=== PATIENT | male | born 1965 | race Caucasian/White ===

== ENCOUNTER 2017-01-25 20:57 | Emergency (ER) | payer SELFPAY ==
[~2017-01-25] VITALS: Ht 182.9 cm; Wt 87.0 kg
[~2017-01-25 20:57] MED LIST: IBUP800T23 PO; METH750T2 PO
[2017-01-25 20:58] VITALS: BP 118/57; PULSE 75; RESP 16; TEMP 98.8; O2SAT 96
--- NOTE | 2017-01-25 22:29 | PD ---
Physical Exam Time Seen by Provider: 22:28 Narrative 51yo M c/o nasal laceration from a yonatan frawn today after it fell on his face. Not up to date on tetanus. Patient seen in triage. VS reviewed. Awaiting bed placement. Data Data Last Documented VS Vital Signs Date Time Temp Pulse Resp B/P (MAP) Pulse Ox O2 Delivery O2 Flow Rate FiO2 01/25/17 20:58 98.8 75 16 118/57 (77) 96 Room Air MDM Supervised Visit with ARTEMIO: Karla Lorenz Jan 25, 2017 22:29
== END 2017-01-25 23:26 | disposition left against medical advice (07) ==
LOC: NED 20:57
DX: S01.21XA Laceration without foreign body of nose, initial encounter (principal); W22.8XXA Striking against or struck by other objects, initial encounter; Z53.21 Procedure and treatment not carried out due to patient leaving prior to being seen by health care provider
CPT/HCPCS: 99281

== ENCOUNTER 2017-04-12 09:32 | Observation (INO) | payer SELFPAY ==
[~2017-04-12] VITALS: Ht 182.9 cm; Wt 90.0 kg
[2017-04-12 09:34] VITALS: BP 128/78; PULSE 68; RESP 16; TEMP 98; O2SAT 97
[2017-04-12 09:56] VITALS: BP 144/60; PULSE 67; RESP 16; TEMP 98.6; O2SAT 100
[2017-04-12 09:58] VITALS: O2SAT 96
[2017-04-12] MEDS ORDERED: SODIUM CHLORIDE 0.9% FLUSH 10 ML FLUSH IVF PRN (10:00)
[2017-04-12 10:23] LABS: AUTOMATED NEUTROPHIL # 4.5 TH/MM3 (1.8-7.7); BASOPHIL # 0.1 TH/MM3 (0-0.2); BASOPHIL % 1.2 % (0.0-2.0); EOSINOPHIL # 0.3 TH/MM3 (0-0.4); EOSINOPHIL % 3.6 % (0.0-4.0); HEMATOCRIT 40.5 % (39.0-51.0); HEMO FLAGS DIFF FINAL; LYMPH % 23.3 % (9.0-44.0); LYMPHOCYTE # 1.7 TH/MM3 (1.0-4.8); MEAN CELL VOLUME 87.6 FL (80.0-100.0); MEAN CORPUSCULAR HGB CONC 35.4 % (32.0-36.0); MONO % 9.3 % (0.0-8.0); NEUT % 62.6 % (16.0-70.0); PLATELET COUNT 216 TH/MM3 (150-450); RED BLOOD COUNT 4.63 MIL/MM3 (4.50-5.90); RED CELL DISTRIBUTION WIDTH 12.9 % (11.6-17.2); WHITE BLOOD COUNT 7.2 TH/MM3 (4.0-11.0)
[2017-04-12 10:35] LABS: APTT (PATIENT) 27.3 SEC (24.3-30.1); PROTHROMBIN TIME - PATIENT 10.5 SEC (9.8-11.6)
[2017-04-12] MEDS ORDERED: NITROGLYCERIN 0.4 MG SL 25 TABS/BTL SL ONE (10:45)
[2017-04-12] MEDS ORDERED: ASPIRIN 81 MG CHEW TAB CHEW ONE (10:45)
[2017-04-12 10:46] LABS: ALT (GPT) 31 U/L (12-78)
--- NOTE | 2017-04-12 10:47 | PD ---
HPI Chief Complaint: Pain: Acute or Chronic Time Seen by Provider: 09:48 Travel History International Travel<30 days: No Contact w/Intl Traveler<30days: No Traveled to known affect area: No History of Present Illness HPI Patient is a 51-year-old male presents emergency Department with left-sided chest pain without radiation. Patient states his been on and off for some time but had an episode this morning which is concerning to him. Describes it as a small pressure, so she was mild shortness of breath no nausea no vomiting no diarrhea no constipation. He relates a history of his sister at a similar age having a "massive heart attack". Patient states he's ex-smoker, has not had a checkup in many years, is unsure if he has high blood pressure high cholesterol. States currently the symptoms are mild.. PFSH Past Medical History Arthritis: No Asthma: No Anxiety: Yes Depression: Yes Heart Rhythm Problems: No Cardiovascular Problems: No High Cholesterol: No Chemotherapy: No Chest Pain: No COPD: Yes Cerebrovascular Accident: No Diabetes: No Diminished Hearing: No Endocrine: No GERD: No Genitourinary: No Headaches: Yes Hepatitis: Yes (HEPATITIS C) Hiatal Hernia: No Immune Disorder: No Musculoskeletal: No Neurologic: No Psychiatric: Yes Reproductive: No Respiratory: No Migraines: No Pneumonia: Yes (X 1 ) Radiation Therapy: No Renal Failure: No Seizures: No Sickle Cell Disease: No Sleep Apnea: No Thyroid Disease: No Ulcer: No Past Surgical History Abdominal Surgery: Yes AICD: No Appendectomy: Yes Arteriovenous Shunt: No Cardiac Surgery: No Ear Surgery: No Endocrine Surgery: No Eye Surgery: No Genitourinary Surgery: No Gynecologic Surgery: No Insulin Pump: No Joint Replacement: No Oral Surgery: No Pacemaker: No Thoracic Surgery: No Social History 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 SKIN: Focused skin assessment warm/dry. HEAD: Atraumatic. Normocephalic. EYES: Pupils equal and round. No scleral icterus. No injection or drainage. ENT: No nasal bleeding or discharge. Mucous membranes pink and moist. NECK: Trachea midline. No JVD. CARDIOVASCULAR: Regular rate and rhythm. No murmur appreciated. RESPIRATORY: No accessory muscle use. Clear to auscultation. Breath sounds equal bilaterally. GASTROINTESTINAL: Abdomen soft, non-tender, nondistended. Hepatic and splenic margins not palpable. MUSCULOSKELETAL: No obvious deformities. No clubbing. No cyanosis. No edema. NEUROLOGICAL: Awake and alert. No obvious cranial nerve deficits. Motor grossly within normal limits. Normal speech. PSYCHIATRIC: Appropriate mood and affect; insight and judgment normal. Data Data Last Documented VS Vital Signs Date Time Temp Pulse Resp B/P (MAP) Pulse Ox O2 Delivery O2 Flow Rate FiO2 04/12/17 11:22 63 18 117/69 (85) 100 Room Air 04/12/17 09:56 98.6 Orders Orders Electrocardiogram (04/12/17 09:46) Ckmb (Isoenzyme) Profile (04/12/17 09:46) Complete Blood Count With Diff (04/12/17 09:46) Comprehensive Metabolic Panel (04/12/17 09:46) Magnesium (Mg) (04/12/17 09:46) Prothrombin Time / Inr (Pt) (04/12/17 09:46) Act Partial Throm Time (Ptt) (04/12/17 09:46) Troponin I (04/12/17 09:46) Lipase (04/12/17 09:46) Ecg Monitoring (04/12/17 09:46) Iv Access Insert/Monitor (04/12/17 09:46) Oximetry (04/12/17 09:46) Oxygen Administration (04/12/17 09:46) Sodium Chloride 0.9% Flush (Ns Flush) (04/12/17 10:00) Aspirin Chew (Aspirin Chew) (04/12/17 10:45) Nitroglycerin Sl (Nitrostat Sl) (04/12/17 10:45) Chest, Single Ap (04/12/17 ) Sodium Chlor 0.9% 1000 Ml Inj (Ns 1000 M (04/12/17 11:45) Ct Abd/Pel W Iv Contrast(Rout) (04/12/17 ) Iohexol 350 Inj (Omnipaque 350 Inj) (04/12/17 12:25) Admit Order (Ed Use Only) (04/12/17 ) Labs Laboratory Tests Test 04/12/17 09:45 White Blood Count 7.2 TH/MM3 Red Blood Count 4.63 MIL/MM3 Hemoglobin 14.3 GM/DL Hematocrit 40.5 % Mean Corpuscular Volume 87.6 FL Mean Corpuscular Hemoglobin 31.0 PG Mean Corpuscular Hemoglobin Concent 35.4 % Red Cell Distribution Width 12.9 % Platelet Count 216 TH/MM3 Mean Platelet Volume 9.5 FL Neutrophils (%) (Auto) 62.6 % Lymphocytes (%) (Auto) 23.3 % Monocytes (%) (Auto) 9.3 % Eosinophils (%) (Auto) 3.6 % Basophils (%) (Auto) 1.2 % Neutrophils # (Auto) 4.5 TH/MM3 Lymphocytes # (Auto) 1.7 TH/MM3 Monocytes # (Auto) 0.7 TH/MM3 Eosinophils # (Auto) 0.3 TH/MM3 Basophils # (Auto) 0.1 TH/MM3 CBC Comment DIFF FINAL Differential Comment Prothrombin Time 10.5 SEC Prothromb Time International Ratio 1.0 RATIO Activated Partial Thromboplast Time 27.3 SEC Blood Urea Nitrogen 14 MG/DL Creatinine 0.84 MG/DL Random Glucose 89 MG/DL Total Protein 7.4 GM/DL Albumin 4.0 GM/DL Calcium Level 8.8 MG/DL Magnesium Level 2.1 MG/DL Alkaline Phosphatase 81 U/L Aspartate Amino Transf (AST/SGOT) 22 U/L Alanine Aminotransferase (ALT/SGPT) 31 U/L Total Bilirubin 0.3 MG/DL Sodium Level 139 MEQ/L Potassium Level 3.9 MEQ/L Chloride Level 104 MEQ/L Carbon Dioxide Level 27.0 MEQ/L Anion Gap 8 MEQ/L Estimat Glomerular Filtration Rate 96 ML/MIN Total Creatine Kinase 91 U/L Troponin I LESS THAN 0.02 NG/ML Lipase 519 U/L MDM Medical Decision Making Medical Screen Exam Complete: Yes Emergency Medical Condition: Yes Differential Diagnosis ACS, AMI, pancreatitis, chest wall pain, GERD. Narrative Course 51-year-old male presents emergency department for evaluation of chest pain left side of his chest without radiation. Significant family history of heart attack in his sister who had a massive heart attack according to him. Initial EKG troponin negative. Patient had an isolated in lead elevation of lipase. He has not had any nausea or vomiting. This pain is fairly atypical but given the risk factor think he would do well for chest pain center for CAT scan of his abdomen is negative. He certainly does not have any convincing signs of pancreatitis. No tumors noted on CAT scan of the abdomen the patient was reassured recommend chest pain center observation and he is agreeable. Diagnosis Primary Impression: Chest pain Qualified Codes: R07.9 - Chest pain, unspecified Admitting Information Admitting Physician Requests: Observation Condition: Stable Orestes Ruiz MD Apr 12, 2017 10:47
[2017-04-12 10:52] LABS: ALKALINE PHOSPHATASE 81 U/L (45-117); ANION GAP 8 MEQ/L (5-15); AST (GOT) 22 U/L (15-37); BLOOD UREA NITROGEN 14 MG/DL (7-18); CHLORIDE 104 MEQ/L (98-107); GLOMERULAR FILTRATION RATE 96 ML/MIN (>89); MAGNESIUM 2.1 MG/DL (1.5-2.5); POTASSIUM 3.9 MEQ/L (3.5-5.1); SODIUM (NA) 139 MEQ/L (136-145); TOTAL BILIRUBIN ADULT 0.3 MG/DL (0.2-1.0)
[2017-04-12 10:58] LABS: CREATINE KINASE 91 U/L (39-308)
[2017-04-12 11:22] VITALS: BP 117/69; PULSE 63; RESP 18; O2SAT 100
--- NOTE | 2017-04-12 11:42 | RADRPT ---
EXAM DATE/TIME: 04/12/2017 10:58 [facility] COMPARISON: CHEST SINGLE AP, March 04, 2014, 10:21. INDICATIONS : Chest pain MEDICAL HISTORY : enphysema SURGICAL HISTORY : None. ENCOUNTER: Initial ACUITY: 3 weeks PAIN SCORE: 3/10 LOCATION: Bilateral chest FINDINGS: A single view of the chest demonstrates the lungs to be symmetrically aerated without evidence of mas s, infiltrate or effusion. The cardiomediastinal contours are unremarkable. Osseous structures are intact. CONCLUSION: No acute disease. Tim Booker Jr., MD on April 12, 2017 at 11:40 Board Certified Radiologist. This report was verified electronically.
[2017-04-12] MEDS ORDERED: SODIUM CHLOR 0.9% 1000 ML INJ 1,000 ML IV ONE (11:45)
[2017-04-12] MEDS ORDERED: IOHEXOL 350 MG/ML 10 ML VIAL (for RAD DIAG) IVCONTRAST ONE (12:25)
--- NOTE | 2017-04-12 12:38 | RADRPT ---
EXAM DATE/TIME: 04/12/2017 12:15 [facility] COMPARISON: No previous studies available for comparison. INDICATIONS : Elevated lipase with epigastric pain IV CONTRAST: 96 cc Omnipaque 350 (iohexol) IV ORAL CONTRAST: No oral contrast ingested. RADIATION DOSE: 8.7 CTDIvol (mGy) MEDICAL HISTORY : Hepatitis C. SURGICAL HISTORY : Appendectomy. ENCOUNTER: Initial ACUITY: 2 days PAIN SCALE: 3/10 LOCATION: upper quadrant TECHNIQUE: Volumetric scanning of the abdomen and pelvis was performed. Using automated exposure control and ad justment of the mA and/or kV according to patient size, radiation dose was kept as low as reasonably achievable to obtain optimal diagnostic quality images. DICOM format image data is available electro nically for review and comparison. FINDINGS: LOWER LUNGS: The visualized lower lungs are clear. LIVER: Homogeneous density without lesion. There is no dilation of the biliary tree. Tiny stone in the gall bladder. No evidence of inflammatory changes. SPLEEN: Normal size without lesion. PANCREAS: Within normal limits. No inflammatory changes are demonstrated. KIDNEYS: Normal in size and shape. There is no mass or hydronephrosis. Questionable 5 mm vascular calcificati on versus nonobstructing stone mid pole right kidney. ADRENAL GLANDS: Within normal limits. VASCULAR: There is no aortic aneurysm. BOWEL/MESENTERY: The stomach, small bowel, and colon demonstrate no acute abnormality. There is no free intraperitone al air or fluid. No inflammatory changes. The appendix is unremarkable. Moderate stool throughout the colon. ABDOMINAL WALL: Within normal limits. RETROPERITONEUM: There is no lymphadenopathy. BLADDER: No wall thickening or mass. REPRODUCTIVE: Within normal limits. INGUINAL: There is no lymphadenopathy or hernia. MUSCULOSKELETAL: Within normal limits for patient age. CONCLUSION: 1. Tiny gallstone in gallbladder. No biliary tract obstruction. 2. The pancreas is unremarkable with no evidence of inflammatory changes. 3. Questionable 5 mm nonobstructing right kidney stone versus vascular calcification. Chip Murrell MD on April 12, 2017 at 12:32 Board Certified Radiologist. This report was verified electronically.
[2017-04-12 13:15] VITALS: BP 132/65; PULSE 75; RESP 16; O2SAT 98
[2017-04-12] MEDS ORDERED: ACETAMINOPHEN 500 MG CPLT PO PRN (14:15)
[2017-04-12] MEDS ORDERED: SODIUM CHLORIDE 0.9% FLUSH 5 ML FLUSH IVF PRN (14:15)
[2017-04-12] MEDS ORDERED: ONDANSETRON HCL 4 MG/2 ML VIAL IV PUSH PRN (14:15)
[2017-04-12] MEDS ORDERED: ACETAMINOPHEN/HYDROcodone 325 MG/7.5 MG TAB PO PRN (14:15)
[2017-04-12] MEDS ORDERED: PANTOPRAZOLE SOD 40 MG DELAYED RELEASE TAB PO SCH (14:15)
--- NOTE | 2017-04-12 14:26 | HHI.HP ---
HPI Primary Care Physician No Primary Care Physician Chief Complaint Chest pain History of Present Illness This is a 51-year-old male that presents to ED via private vehicle with complaint of intermittent left sided chest discomfort. States is been present intermittently for 3 months. Described as a sharp pain. The longest the discomforts have lasted has been 1 minute. Sometimes it's been with activity. Other times at rest at nighttime resting. No associated shortness of breath, nausea, or diaphoresis. Denies history of CAD. Cannot recall having a stress test. Lipid status is unknown. Review of Systems General: Patient denies fevers, chills recent, and recent travel HEENT: Patient denies headache, sore throat, difficulty swallowing. Cardiovascular: Has the chest discomfort as mentioned above. Denies sensation of heart beating rapidly or irregularly. No syncope. Denies diaphoresis. Respiratory: Denies shortness of breath or inspirational chest discomfort. Denies coughing wheezing or hemoptysis. GI: Patient denies nausea, vomiting, diarrhea, abdominal pain, bloody stools. Musculoskeletal: Patient denies joint pain or edema. Denies calf pain or edema. Neurovascular: Patient denies numbness, tingling, weakness in extremities. Denies headache. Endocrine: Denies polyuria and polydipsia. Hematologic: Denies easy bruising. Skin: Denies rash or itching. Past Family Social History Allergies: Coded Allergies: No Known Allergies (Unverified Allergy, Unknown, 04/12/17) Past Medical History COPD. Denies hypertension, diabetes, and CAD. Lipid status is unknown. Past Surgical History Appendectomy Reported Medications Reported Meds & Active Scripts Active Ibuprofen 800 Mg Tab 800 Mg PO Q8HR PRN 10 Days Robaxin (Methocarbamol) 750 Mg Tab 750 Mg PO QID PRN Active Ordered Medications Current Medications Medications (Trade) Dose Ordered Sig/Janet Route Start Time Stop Time Status Last Admin (NS Flush) 2 ml UNSCH PRN IVF 04/12/17 14:15 (NS Flush) 2 ml BID IVF 04/12/17 21:00 (Tylenol) 500 mg Q4H PRN PO 04/12/17 14:15 ([place] 7.5-325 Mg) 1 tab Q4H PRN PO 04/12/17 14:15 (Zofran Inj) 4 mg Q6H PRN IV PUSH 04/12/17 14:15 (Protonix) 40 mg DAILY PO 04/12/17 14:15 (Aspirin) 325 mg DAILY PO 04/13/17 09:00 Family History Denies family history of heart disease Social History Quit smoking cigarettes 5 months ago prior that he smoked 1-1-1/2 packs a day for 30 years. 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 Physical Exam Vital Signs Vital Signs Date Time Temp Pulse Resp B/P (MAP) Pulse Ox O2 Delivery O2 Flow Rate FiO2 04/12/17 13:15 75 16 132/65 (87) 98 Room Air 04/12/17 11:22 63 18 117/69 (85) 100 Room Air 04/12/17 09:58 96 Room Air 04/12/17 09:58 96 Room Air 04/12/17 09:56 98.6 67 16 144/60 (88) 100 04/12/17 09:34 98.0 68 16 128/78 (95) 97 Room Air Physical Exam GENERAL: This is a well-nourished, well-developed patient, in no apparent distress. Patient speaks in clear complete sentences. Patient is pleasant. HEENT: Head is atraumatic and normocephalic. Neck is supple without lymphadenopathy and trachea is midline. No JVD or carotid bruits. CARDIOVASCULAR: Regular rate and rhythm without murmurs, gallops, or rubs. RESPIRATORY: Clear to auscultation. Breath sounds equal bilaterally. No wheezes , rales, or rhonchi. Chest wall is tender at anterolateral border. No use of accessory muscles. GASTROINTESTINAL: Abdomen is nontender, nondistended. Abdomen soft. No obvious pulsatile mass or bruit. No CVA tenderness. Strong femoral pulses bilaterally. Normal bowel sounds in all quadrants. MUSCULOSKELETAL: Patient is moving upper and lower extremities freely. No calf tenderness or edema, no Homans sign. Strong pulses in upper and lower extremities. NEUROLOGICAL: Patient is alert and oriented. Cranial nerves 2-12 are grossly intact. No focal deficits and speech is clear. SKIN: No rash and turgor is normal. Laboratory Laboratory Tests Test 04/12/17 09:45 White Blood Count 7.2 Red Blood Count 4.63 Hemoglobin 14.3 Hematocrit 40.5 Mean Corpuscular Volume 87.6 Mean Corpuscular Hemoglobin 31.0 Mean Corpuscular Hemoglobin Concent 35.4 Red Cell Distribution Width 12.9 Platelet Count 216 Mean Platelet Volume 9.5 Neutrophils (%) (Auto) 62.6 Lymphocytes (%) (Auto) 23.3 Monocytes (%) (Auto) 9.3 Eosinophils (%) (Auto) 3.6 Basophils (%) (Auto) 1.2 Neutrophils # (Auto) 4.5 Lymphocytes # (Auto) 1.7 Monocytes # (Auto) 0.7 Eosinophils # (Auto) 0.3 Basophils # (Auto) 0.1 CBC Comment DIFF FINAL Differential Comment Prothrombin Time 10.5 Prothromb Time International Ratio 1.0 Activated Partial Thromboplast Time 27.3 Blood Urea Nitrogen 14 Creatinine 0.84 Random Glucose 89 Total Protein 7.4 Albumin 4.0 Calcium Level 8.8 Magnesium Level 2.1 Alkaline Phosphatase 81 Aspartate Amino Transf (AST/SGOT) 22 Alanine Aminotransferase (ALT/SGPT) 31 Total Bilirubin 0.3 Sodium Level 139 Potassium Level 3.9 Chloride Level 104 Carbon Dioxide Level 27.0 Anion Gap 8 Estimat Glomerular Filtration Rate 96 Total Creatine Kinase 91 Troponin I LESS THAN 0.02 Lipase 519 Result Diagram: 04/12/17 0945 04/12/17 0945 Imaging Last 24 hours Impressions Chest X-Ray 04/12/17 0000 Signed Impressions: Service Date/Time: March 10:58 - CONCLUSION: No acute disease. Tim Booker Jr., MD Abdomen/Pelvis CT 04/12/17 0000 Signed Impressions: Service Date/Time: March 12:15 - CONCLUSION: 1. Tiny gallstone in gallbladder. No biliary tract obstruction. 2. The pancreas is unremarkable with no evidence of inflammatory changes. 3. Questionable 5 mm nonobstructing right kidney stone versus vascular calcification. Chip Murrell MD Course Initial EKG is sinus bradycardia without significant ST segment depressions or elevations. Caprini VTE Risk Assessment Caprini VTE Risk Assessment: No/Low Risk (score <= 1) Caprini Risk Assessment Model Point Value = 1 Point Value = 2 Point Value = 3 Point Value = 5 Age 41-60 Minor surgery BMI > 25 kg/m2 Swollen legs Varicose veins or History of unexplained or recurrent spontaneous Oral contraceptives or hormone replacement Sepsis (< 1 month) Serious lung disease, including pneumonia (< 1 month) Abnormal pulmonary function Acute myocardial infarction Congestive heart failure (< 1 month) History of inflammatory bowel disease Medical patient at bed rest Age 61-74 Arthroscopic surgery Major open surgery (> 45 min) Laparoscopic surgery (> 45 min) Malignancy Confined to bed (> 72 hours) Immobilizing plaster cast Central venous access Age >= 75 History of VTE Family history of VTE Factor V Leiden Prothrombin [id number] Lupus anticoagulant Anticardiolipin antibodies Elevated serum homocysteine Heparin-induced thrombocytopenia Other congenital or acquired thrombophilia Stroke (< 1 month) Elective arthroplasty Hip, pelvis, or leg fracture Acute spinal cord injury (< 1 month) Prophylaxis Regimen Total Risk Factor Score Risk Level Prophylaxis Regimen 0-1 Low Early ambulation 2 Moderate Order ONE of the following: *Sequential Compression Device (SCD) *Heparin 5000 units SQ BID 3-4 Higher Order ONE of the following medications: *Heparin 5000 units SQ TID *Enoxaparin/Lovenox 40 mg SQ daily (WT < 150 kg, CrCl > 30 mL/min) *Enoxaparin/Lovenox 30 mg SQ daily (WT < 150 kg, CrCl > 10-29 mL/min) *Enoxaparin/Lovenox 30 mg SQ BID (WT < 150 kg, CrCl > 30 mL/min) AND/OR *Sequential Compression Device (SCD) 5 or more Highest Order ONE of the following medications: *Heparin 5000 units SQ TID (Preferred with Epidurals) *Enoxaparin/Lovenox 40 mg SQ daily (WT < 150 kg, CrCl > 30 mL/min) *Enoxaparin/Lovenox 30 mg SQ daily (WT < 150 kg, CrCl > 10-29 mL/min) *Enoxaparin/Lovenox 30 mg SQ BID (WT < 150 kg, CrCl > 30 mL/min) AND *Sequential Compression Device (SCD) Assessment and Plan Assessment and Plan * Chest pain patient's discomfort appears to be atypical. Likely musculoskeletal. Patient examined by Dr. Calix of cardiology and the chest pain center. He will undergo a Allen protocol ETT and if nonischemic will be discharged home instructions to follow-up with PCP. Lipase was mildly elevated in the ED. ED physician obtain a CT abdomen and pelvis which does not reveal acute findings. Symptoms do not seem to be related to pancreatitis. He was given IV fluid bolus the ED. He will need to follow-up with PCP. Return to ED as needed. Patient is stable at this time. Is agreeable to this plan. Dmitriy Louis Apr 12, 2017 14:26
--- NOTE | 2017-04-12 15:33 | HHI.DCPOC ---
Discharge Care Plan Diagnosis: (1) Chest pain Goals to Promote Your Health * To prevent worsening of your condition and complications * To maintain your health at the optimal level Directions to Meet Your Goals Take your medications as prescribed Follow your dietary instruction Follow activity as directed Keep your appointments as scheduled Take your immunizations and boosters as scheduled If your symptoms worsen call your PCP, if no PCP go to Urgent Care Center or Emergency Room Smoking is Dangerous to Your Health. Avoid second hand smoke Call the 24-hour hour crisis hotline for domestic abuse at Dmitriy Louis Apr 12, 2017 15:33
[2017-04-12 15:41] VITALS: BP 126/74
--- NOTE | 2017-04-12 17:52 | TR ---
Date Performed: 04/12/2017 Time Performed: 14:59:28 DOCTOR: Mohamud Calix DRUG LIST: CLINICAL HISTORY: REASON FOR TEST: Chest pain REASON FOR ENDING: OBSERVATION: CONCLUSION: SANIA PROTOCOL. NO CP. TEST STOPPED AFTER EXCEEDING GOAL HR SECONDARY TO SOB AND LEG FATIGUE. GOOD EXERCISE TOLERANCE. OCCASIONAL PVC AND PAC.Maximum RL=476 % Max HR Achieved=95.0% Max imum RI=773/96 Total Exercise Time=10:00 COMMENTS: Conclusion: Normal treadmill exercise. No evidence of ischemia.
[2017-04-12] MEDS ORDERED: SODIUM CHLORIDE 0.9% FLUSH 5 ML FLUSH IVF SCH (21:00)
[2017-04-13] MEDS ORDERED: ASPIRIN 325 MG TAB PO SCH (09:00)
--- NOTE | 2017-04-13 17:56 | EKG ---
Date Performed: 04/12/2017 Time Performed: 09:52:14 PTAGE: 51 years EKG: SINUS BRADYCARDIA BORDERLINE ECG Since PREVIOUS TRACING , no significant change noted PREVIOUS TRACIN03/04/2014 10.08 DOCTOR: Mohamud Calix Interpretating Date/Time 04/13/2017 17:55:19
== END 2017-04-12 16:33 | disposition home or self-care (01) ==
LOC: NEPC 09:32 → NEDA 12:44 → NEPHCDU 14:34
DX: R07.89 Other chest pain (principal); R00.1 Bradycardia, unspecified; R74.8 Abnormal levels of other serum enzymes; R10.13 Epigastric pain; J44.9 Chronic obstructive pulmonary disease, unspecified; K80.20 Calculus of gallbladder without cholecystitis without obstruction; B19.20 Unspecified viral hepatitis C without hepatic coma; F41.9 Anxiety disorder, unspecified; F32.9 Major depressive disorder, single episode, unspecified; Z87.891 Personal history of nicotine dependence; Z82.49 Family history of ischemic heart disease and other diseases of the circulatory system
CPT/HCPCS: 71010; 74177; 80053; 82550; 83690; 83735; 84484; 85025; 85610; 85730; 93005; 93017; 96360; 96361; 99285; G0378; J7030; Q9967